=== PATIENT | male | born 1980 | race Caucasian/White ===

== ENCOUNTER 2020-02-07 19:52 | Emergency (ER) | payer SELFPAY ==
[2020-02-07] MEDS ORDERED: ACETAMINOPHEN 500 MG TABLET (FP) PO ONE (20:02)
--- NOTE | 2020-02-07 20:02 | PDOC ---
Rapid Medical Evaluation Chief Complaint: Injury Time Seen by Provider: 02/07/20 20:00 Medical Evaluation: Allergies Allergy/AdvReac Type Severity Reaction Status Date / Time No Known Allergies Allergy Verified 11/14/13 21:53 02/07/20 20:00 I have performed a brief in-person evaluation of this patient. CC: sacral pain s/p slip and fall down marble steps PE: Gross sacral tenderness. Orders: xray, tylenol Patient to proceed to ED for Further evaluation. Discharge Disposition - Diagnosis Sacral pain - Referrals - Patient Instructions - Post Discharge Activity
[2020-02-07 20:06] VITALS: BP 151/102; PULSE 93; TEMP 98.9; BMI 29.9
--- NOTE | 2020-02-07 20:53 | PDOC ---
History of Present Illness - General Chief Complaint: Injury Stated Complaint: FALL Time Seen by Provider: 02/07/20 20:00 - History of Present Illness Initial Comments: 02/07/20 20:49 39-year-old male without comorbidities presents for evaluation of buttock pain. He states 3 days ago he fell onto his buttock down a flight of about 12 steps. Since that time he has been having pain about his buttocks which radiates into his testicles. No loss of bowel or bladder function or saddle paresthesias. He has intermittent pain in his testicles since the fall. Past History - Medical History Allergies/Adverse Reactions: Allergies Allergy/AdvReac Type Severity Reaction Status Date / Time No Known Allergies Allergy Verified 02/07/20 20:03 Home Medications: Ambulatory Orders Cyclobenzaprine HCl [Flexeril] 5 mg PO TID PRN #20 tablet 11/14/13 No Home Medications 0 dose .ROUTE UTDICT 11/14/13 Docusate Sodium [Colace -] 100 mg PO TID #21 capsule 02/07/20 Ibuprofen [Motrin -] 600 mg PO TID #30 tablet 02/07/20 COPD: No - Psycho-Social/Smoking History Smoking History: Never smoked - Substance Abuse Hx (Audit-C & DAST Scrn) How often the patient has a drink containing alcohol: Never Score: In Men: 4 or > Positive; In Women: 3 or > Positive: 0 Screen Result (Pos requires Nsg. Audit-10AR): Negative Review of Systems - Review of Systems : Yes: Testicular Pain Musculoskeletal: Yes: Back Pain *Physical Exam - Vital Signs Last Vital Signs Temp Pulse Resp BP Pulse Ox 98.9 F 93 H 18 151/102 H 99 02/07/20 19:59 02/07/20 19:59 02/07/20 19:59 02/07/20 19:59 02/07/20 19:59 - Physical Exam 02/07/20 20:50 Lumbar sacral spine skin color and temperature are normal there is a small area of ecchymosis on the left sacroiliac joint. 5 out of 5 strength bilateral lower extremities without gross sensorimotor deficits tenderness over the sacrum and coccyx. No evidence of instability. Cremasteric reflexes intact. No testicular tenderness. No saddle paresthesias. Neurovascular intact. Negative straight leg raise test. Medical Decision Making - Medical Decision Making 02/07/20 20:51 No gross fracture trauma or destructive process on radiograph today of the sacrum. Coccygeal contusion. Weight-bear as tolerated discussed use of anti- inflammatories and stool softeners follow-up with neurosurgery for further evaluation and treatment options with instructions to return to the emergency room should symptoms worsen. I have reviewed the pathophysiology with the patient. They are in agreement with the treatment plan all questions were answered to their satisfaction. Understanding for follow-up without fail was also conveyed to the patient. Again they are in agreement. Discharge - Discharge Information Problems reviewed: Yes Clinical Impression/Diagnosis: Acute coccygeal pain Clinical Impression/Diagnosis: (Ruled Out): Sacral pain Condition: Stable Disposition: HOME - Admission No - Additional Discharge Information Prescriptions: Docusate Sodium [Colace -] 100 mg PO TID #21 capsule Ibuprofen [Motrin -] 600 mg PO TID #30 tablet - Follow up/Referral Referrals: Eugene Ferrer MD, [facility] [Staff Physician] - - Patient Discharge Instructions Additional Instructions: Please take the anti-inflammatories and stool softeners as directed. Return to the emergency room for worsening symptoms and without fail follow-up with neurosurgery in 1 to 2 days for further evaluation and treatment options. If needed you may take a Tylenol as directed for additional pain medication. - Post Discharge Activity
== END 2020-02-07 21:01 | disposition home or self-care (01) ==
LOC: JERFT 19:52 → JER 19:52 → JERFT 21:01
DX: M54.89 Other dorsalgia (principal)
CPT/HCPCS: 72220-TC-FY; 99283-25